=== PATIENT | male | born 1955 | race American Indian/Alaskan Native ===

== ENCOUNTER 2019-07-07 12:47 | Outpatient (CLI) | payer BC ==
--- NOTE | 2019-07-07 13:36 | Ultrasound Report ---
Left neck Ultrasound HISTORY: Enlarged palpable area along the left angle of the mandible. COMPARISON: None FINDINGS: Targeted ultrasound focused in the area of the angle of the left mandible was performed to evaluate t he site of a reported palpable finding. There is a circumscribed reniform shape 3.8 x 1.8 x 3.2 cm hy poechoic solid-appearing structure in this region. The appearance is most suggestive of an enlarged l ymph node. A normal-appearing lymph node is noted within the right superior neck. Incidentally noted is a circumscribed hypoechoic solid-appearing 9 x 11 x 7 mm nodule within the supe rior aspect of the left thyroid. Based upon TI-RADS assessment, this would equate to 4 points or TR4 TI-RADS level. IMPRESSION: Palpable finding in the region of the angle of the left mandible corresponds with a suspected enlarge d lymph node. Consider a dedicated CT of the neck to assess for any additional masses or abnormal lym phadenopathy which may not be appreciated on ultrasound. If clinically indicated, this would appear t o be amenable to ultrasound-guided fine-needle aspiration. An 11 mm solid nodule within the superior aspect of left thyroid is noted. This does not currently me et criteria for aspiration. Recommend follow-up thyroid ultrasound in one year. Signer Name: Malick Villafana MD Signed: 07/07/2019 1:32 PM Workstation Name: [id number]
== END 2019-07-07 12:48 | disposition home or self-care (01) ==
LOC: SPVWC 12:47
PROVIDERS: ATTEND Internal Medicine
DX: E04.1 Nontoxic single thyroid nodule (principal)
CPT/HCPCS: 76536